=== PATIENT | female | born 1960 | race Caucasian/White ===

== ENCOUNTER 2018-10-29 08:56 | Inpatient (IN) ==
[2018-10-29 09:36] LABS: Hematocrit 42.1 % (37.0-47.0); Hemoglobin 14.2 gm/dL (12.5-16.0); Mean Cell Volume 90.5 fl (78-100); Mean Corpuscular Hemoglobin 30.5 pg (27-31); Mean Corpuscular Hgb Conc 33.7 g/dl (32-36); Mean Platelet Volume 10.4 fl (8-12.5); Neutrophil # 7.6 K/mm3 (1.3-6.0); Neutrophil % 73.1 % (42-75.0); Platelet Count 291 K/mm3 (150-450); Red Blood Count 4.65 M/mm3 (4.2-5.4); Red Cell Distribution Width 12.1 % (11.5-14.0); White Blood Count 10.4 K/mm3 (4.0-10.5)
[2018-10-29 09:46] LABS: Albumin * 3.7 gm/dl (3.4-5.0); Anion Gap 13.4 mmol/L (6.8-13.8); BUN/Creatinine Ratio 17.6 (9.0-21.6); Bilirubin, Total 0.5 mg/dL (0.0-1.1); Ca. Corrected For Albumin 9.9 mg/dL (8.4-10.2); Carbon Dioxide 27.6 mmol/L (24-32.6); Total Protein 8.4 gm/dL (6.2-8.2)
[2018-10-29] MEDS ORDERED: LABETALOL HCL 5 MG/ML VIAL IV ONE (09:59)
--- NOTE | 2018-10-29 11:44 | ERNOTE ---
Medical Problem HPI - Narrative Date of Service: 10/29/18 - General Chief Complaint: General Assessment Time Seen by Provider: 10/29/18 09:23 Source: patient, family Exam Limitations: no limitations - Immun/Allergies/Home Medications Immunizations: IMMUNIZATION HX Immunizations Up to Date Yes History of Influenza Vaccine No Hx Pneumococcal Vaccination No Allergies/Adverse Reactions: Allergies No Known Allergies Allergy (Verified 10/29/18 09:04) Home Medications: HOME MEDICATIONS Aspirin [Lo-Dose Aspirin EC] 81 mg PO DAILY 10/29/18 [Last Taken Unknown] Insulin Regular, Human [Humulin R] 17 unit INJ BID 10/29/18 [Last Taken Unknown] Lisinopril [Prinivil] 10 mg PO DAILY 10/29/18 [Last Taken Unknown] - History of Present History Narrative: Patient presents to the ED for trouble with vision. She noticed this around 8am today when she started driving. She has never had anything like this before. She has has a headache on the top of the head for 3 days. This is the first time she has driven since her headache started but she relates that she really hasn't noticed this unless driving. Only left eye, cant see left visual field left eye. No eye pain. She denies any extremity weakness or numbness. No vomiting. No trauma. No double vision. She had stroke in June that was seen at [facility] but without apparent deficits. No CP or SOB. Timing: constant, other - she noticed that at 8am today but it is not clear if this started earlier and her HERNÁNDEZ has been there for 3 days. HERN[place]NDEZ top of head. No temporal pain Severity: moderate Modifying Factors - (Improves): Present: other - nothing Modifying Factors - (Worsens): Present: other - nothing Review of Systems - Review of Systems Constitutional: Absent: fever EYE: Present: see HPI ENT: Absent: sore throat Respiratory: Absent: shortness of breath Cardiology: Absent: chest pain Gastrointestinal/Abdominal: Absent: abdominal pain Genitourinary: Absent: dysuria Skin: Absent: rash Neurological: Present: See HPI All Other Systems: All systems neg except as marked Medical History (Updated 10/29/18 @ 10:46 by Elvira Sanz RN) H/O: hysterectomy Diabetes Hx of hysterectomy Surgical History: Surgical History (Updated 10/29/18 @ 10:46 by Elvira Sanz RN) HTN (hypertension) Family History: Family History (Updated 10/29/18 @ 10:46 by Elvira Sanz RN) Other No pertinent family history Social History: Preferred Language Italian Do you have any catholic or No cultural preference? Smoking Status Never smoker Have you smoked in the past 12 No months Do you dip or chew tobacco No Alcohol Use none Drug Use none No Social History Section defined Physical Exam - Physical Exam General Appearance: Present: alert, no apparent distress Head Exam: Present: normal inspection, no evidence of injury Eye Exam: Normal inspection: bilateral, PERRL: bilateral, EOMI: bilateral, Other: bilateral - I see no convincing evidence of retinal abnormality on exam, no clear papilledema but difficult exam d/t small pupils. Ears, Nose, Throat: Present: normal ENT inspection Neck: Present: normal inspection Respiratory: Present: no respiratory distress, normal breath sounds, no accessory muscle use, lungs clear Cardiovascular/Chest: Present: regular rate, rhythm Gastrointestinal/Abdominal: Present: normal bowel sounds, nontender, soft Back Exam: Absent: CVA tenderness (R), CVA tenderness (L) Extremity Exam: Present: non-tender Neurological Exam: Present: alert, other - There is a left monocular temporal hemianopsia. No temporal artery tendenress. No pronator drift, finger to nose wnl. Full LE strength. Sensation intact.. Absent: facial droop, motor weakness, disoriented to person Skin Exam: Present: normal color, warm/dry Progress - Results and Orders Patient's Lab Results:: I have reviewed the patient's lab results. - Vital Signs Patient's Vital Signs:: I have reviewed the patient's vital signs. Vital Signs: Vital Signs 10/29/18 09:00 10/29/18 09:20 10/29/18 09:40 Temperature 36.6 C Pulse Rate 96 94 90 Respiratory Rate 16 15 15 Blood Pressure 195/101 H 184/96 H 198/85 H O2 Sat by Pulse Oximetry 99 99 97 10/29/18 10:00 10/29/18 10:03 10/29/18 10:10 Temperature Pulse Rate 89 87 83 Respiratory Rate 17 15 Blood Pressure 176/91 H 176/91 H 148/76 H O2 Sat by Pulse Oximetry 94 95 10/29/18 10:20 10/29/18 10:45 10/29/18 11:00 Temperature Pulse Rate 85 85 Respiratory Rate 18 15 17 Blood Pressure 151/83 H 156/87 H 160/83 H O2 Sat by Pulse Oximetry 93 93 93 10/29/18 11:15 Temperature Pulse Rate 85 Respiratory Rate 15 Blood Pressure 159/86 H O2 Sat by Pulse Oximetry 94 - EKG EKG #1 EKG: NSR EKG read: Interp. by me EKG Comments: NSR, Non-specific changes, no STEMI noted - CT/Ultrasound CT/Ultrasound Narrative: CT head report called to me by Dr Patton - Progress/Reassessment Chief Complaint: General Assessment Progress Note-Subjective: 10/29/18 11:[address] Frederick (stroke Team [facility]). He feels that she is not a candidate for inteventional therapy or tPA (she noticed this driving and had not driven over the last 2 dys). He felt she could be admitted here for work up. This included control of BP, I gave her Labetalol 10mg IV with improved BPs here. Also to include MRI brain, CTA Head and Neck, ROGELIO, 30 day event monitor at discharge and adding Lipitor to Aspirin. I spoke to Dr Green who will care for the patient in the hospital. Patient and family agreeable. Departure Clinical Impression: Hemianopia of left eye, Stroke - Departure Disposition: Still a patient Condition: Fair
[2018-10-29] MEDS: INSULIN LISPRO 100 UNITS/ML VIAL SC SCH ×2 (13:51→17:08)
[2018-10-29] MEDS ORDERED: ASPIRIN 325 MG TABLET.DR PO ONE (14:05)
[2018-10-29] MEDS ORDERED: ACETAMINOPHEN 325 MG TABLET PO PRN (14:10)
--- NOTE | 2018-10-29 14:48 | HP ---
Chief Complaint - Chief Complaint Date of Service: 10/29/18 Time of Service: 14:27 Chief Complaint: I cannot see on my left side since this morning History of Present Illness: 58-year-old female with past medical history of type 2 diabetes on insulin, hypertension, old CVA, was evaluated in our ER for left hemianopsia or the inability to see her left visual field that started this morning while driving. Patient reports that since Monday she has been having a headache at the top of her head specifically in the frontal and parietal regions, However her vision remained intact until this morning when she got behind the steering well started driving to work and noticed that she could not see anything on her left side. Patient became concerned enough to call her son who is a medic and who checked her blood pressure which was found to be above 200/100. Patient's son then took her to the ER. While in the ER patient was evaluated and the only neurological deficit that was finding was the visual defect. ER CT demonstrated a new lesion in the occipital lobe of her brain that was not there previously and other possible lesions in other lobes of the brain. Stroke center at the [facility] was consulted by ER physician and they recommended that patient be admitted to our institution for management of blood pressure and other chronic conditions since she was not a candidate for any interventions given the unknown duration of the stroke. They also recommended additional imaging with brain MRI and a CTA, so both of those imaging modalities were ordered upon admission. Patient denies having such headache before but she does admit to having neurological deficit such as lower extremity weakness during her previous stroke in June but since then her deficits have resolved. Medical History (Updated 10/29/18 @ 12:04 by Pao Leavitt RN) Stroke Diabetes HTN (hypertension) Surgical History: Surgical History (Updated 10/29/18 @ 12:03 by Pao Leavitt RN) H/O: hysterectomy Hx of hysterectomy Family History: Family History (Updated 10/29/18 @ 10:46 by Elvira Sanz RN) Other No pertinent family history Social History: Patient Lives/Resources With Spouse Utilized Preferred Language Algerian Do you have any shinto or Yes: Gnosticist cultural preference? Smoking Status Never smoker Have you smoked in the past 12 No months Do you dip or chew tobacco No Alcohol Use none Drug Use none No Social History Section defined Peds Patient Hx - Developmental: No Pertinent Hx Peds Patient Hx - Medical: No Pertinent Hx Peds Patient Hx - Cardiac/Respiratory: No Pertinent Hx Peds Patient Hx - Surgical: No Surgical History Patient History - Cancer: No Hx of Cancer Review Of Systems (GEN) - Review of Systems Generalized/Overall Review: Present: No Symptoms Reported EENTM: Present: Other - Loss of vision of the left visual field out of left eye since this morning Respiratory: Present: No Symptoms Reported Cardiac: Present: No Symptoms Reported Abdominal: Present: No Symptoms Reported Genitourinary: Present: No Symptoms Reported Musculoskeletal: Present: No Symptoms Reported Neurological: Present: Other - Left hemianopsia Skin: Present: No Symptoms Reported Endocrine: Present: No Symptoms Reported Immunizations: IMMUNIZATION HX Immunizations Up to Date Yes History of Influenza Vaccine No Hx Pneumococcal Vaccination No Allergies/Adverse Reactions: Allergies Allergy/AdvReac Type Severity Reaction Status Date / Time No Known Allergies Allergy Verified 10/29/18 12:01 Home Medications: HOME MEDICATIONS Aspirin [Lo-Dose Aspirin EC] 81 mg PO DAILY 10/29/18 [Last Taken Unknown] Insulin Regular, Human [Humulin R] 10 units IJ 1700 10/29/18 [Last Taken Unknown] Insulin Regular, Human [Humulin R] 17 unit INJ QAM 10/29/18 [Last Taken Unknown] Lisinopril [Prinivil] 10 mg PO DAILY 10/29/18 [Last Taken Unknown] Exam - Exam Vital Signs: Vital Signs - Last Taken Temp 37.3 C 10/29/18 12:12 Pulse 86 10/29/18 12:12 Resp 16 10/29/18 12:12 BP 131/64 10/29/18 12:12 Pulse Ox 96 10/29/18 12:12 Constitutional: Present: Alert, Oriented x3, Cooperative, Well developed, Well nourished, No distress ENT Exam: Present: normal ENT inspection, hearing grossly normal, pharynx normal, TMs normal Eye Exam: bilateral eye: normal inspection, PERRL, EOMI, left eye: other - Left hemianopsia Neck: Present: non-tender, full range of motion, supple, normal inspection, trachea midline Back Exam: Present: normal inspection, no CVA tenderness, no vertebral tenderness Breasts: Present: Exam deferred Respiratory: Present: chest non-tender, lungs clear, normal breath sounds, no respiratory distress, no accessory muscle use Cardiovascular/Chest: Present: normal peripheral pulses, regular rate, rhythm, no chest tenderness, no edema, no gallop, no JVD, no murmur, no rub Peripheral Pulses: carotid (R): 3+, carotid (L): 3+, femoral (R): 4+, femoral (L): 4+, dorsalis-pedis (R): 4+, dorsalis-pedis (L): 4+ Abdomen: Present: Normal bowel sounds, soft, nontender, nondistended, no rebound tenderness, no hepatospenomegaly, no masses /Rectal: Present: Exam deferred Extremity: Present: normal range of motion, non-tender, normal inspection, no pedal edema, no calf tenderness, normal capillary refill Skin Exam: Present: normal color, warm/dry, no cyanosis Lymphatic: Present: no adenopathy 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, normal cerebellar test, alert, normal mood/affect, oriented x 3, sensory deficit - Left hemianopsia Appearance: Present: appropriate appearance, appropriate insight, neat, no memory impairment Eye contact: Present: cooperative, good eye contact, normal speech Thoughts: Present: normal thought pattern, no apparent hallucination Diagnostic Studies: Abnormal Lab Results 10/29/18 10/29/18 10/29/18 Range/Units 09:26 09:26 09:26 Neutrophils # 7.6 H (1.3-6.0) K/mm3 ESR 54 H (0-15) mm/hr Chloride 95 L (97-106) mmol/L Random Glucose 210 H (70-110) mg/dL Total Protein 8.4 H (6.2-8.2) gm/dL Laboratory Results WBC 10.4 K/mm3 (4.0-10.5) 10/29/18 09:26 RBC 4.65 M/mm3 (4.2-5.4) 10/29/18 09:26 Hgb 14.2 gm/dL (12.5-16.0) 10/29/18 09:26 Hct 42.1 % (37.0-47.0) 10/29/18 09:26 MCV 90.5 fl (78-100) 10/29/18 09: MCH 30.5 pg (27-31) 10/29/18 09: MCHC 33.7 g/dl (32-36) 10/29/18 09:26 RDW 12.1 % (11.5-14.0) 10/29/18 09:26 Plt Count 291 K/mm3 (150-450) 10/29/18 09:26 MPV 10.4 fl (8-12.5) 10/29/18 09:26 Immature Gran % (Auto) 0.30 % (0.001-0.429) 10/29/18 09:26 Immature Gran # (Auto) 0.03 K/mm3 (0.000-0.0310) 10/29/18 09:26 73.1 % (42-75.0) 10/29/18 09:26 20.0 % (20-51) 10/29/18 09:26 5.6 % (0.0-9) 10/29/18 09:26 0.7 % (0.0-3.0) 10/29/18 09:26 0.3 % (0.0-1.0) 10/29/18 09:26 Nucleated RBC % 0.0 k/mm3 (0-1) 10/29/18 09:26 7.6 K/mm3 (1.3-6.0) H 10/29/18 09:26 2.07 k/mm3 (1.5-3.5) 10/29/18 09:26 0.6 k/mm3 (0.0-1.0) 10/29/18 09:26 0.1 k/mm3 (0.0-0.7) 10/29/18 09:26 Absolute Basophils 0.0 k/mm3 (0.0-0.1) 10/29/18 09:26 ESR 54 mm/hr (0-15) H 10/29/18 09:26 Sodium 132 mmol/L (132-142) 10/29/18 09:26 134 mmol/L (130-142) 10/29/18 09:26 Potassium 4.0 mmol/L (3.4-4.6) 10/29/18 09:26 Chloride 95 mmol/L (97-106) L 10/29/18 09:26 Carbon Dioxide 27.6 mmol/L (24-32.6) 10/29/18 09:26 13.4 mmol/L (6.8-13.8) 10/29/18 09:26 BUN 13 mg/dL (3-23) 10/29/18 09:26 0.74 mg/dL (0.4-1.4) 10/29/18 09:26 Est GFR (Non-Af Amer) 86 mL/min (60-130) 10/29/18 09:26 17.6 (9.0-21.6) 10/29/18 09:26 210 mg/dL (70-110) H 10/29/18 09:26 Calcium 10.0 mg/dL (7.9-10.9) 10/29/18 09:26 Calcium Adj for Albumin 9.9 mg/dL (8.4-10.2) 10/29/18 09:26 0.5 mg/dL (0.0-1.1) 10/29/18 09:26 AST 16 U/L (0-48) 10/29/18: ALT 21 U/L (19-67) 10/29/18:26 103 U/L (50-170) 10/29/18 09:26 C-Reactive Prot, Quant 0.8 mg/dL (0.0-0.9) 10/29/18 09:26 8.4 gm/dL (6.2-8.2) H 10/29/18 09:26 3.7 gm/dl (3.4-5.0) 10/29/18 09:26 Assessment/Plan - Narrative Narrative: Patient was evaluated and medical chart was reviewed and decision to admit to Medr unit for management of an acute ischemic stroke in the occipital lobe was taken. Patient was administered aspirin and a statin was added to her treatment. We also have ordered additional imaging specifically a brain MRI and CTA of the neck to evaluate for the ischemic stroke and for atherosclerotic disease of the carotids. Currently patient continues to have left hemianopsia but no other neurological or sensory deficits are present. Her blood pressure has decreased with no additional medication since being sent from the ER, no other antihypertensive will be administered to avoid accelerated decrease of BP. We will follow-up with imaging results and treat patient with routine medications to manage her diabetes and other chronic conditions. There are no other concerns on labs. EKG on admission demonstrated a normal sinus rhythm with no other concerning findings. - Assessment/Plan (1) Ischemic stroke Problem: Acute (2) Hemianopia of left eye Problem: Acute (3) Diabetes 1.5, managed as type 2 Problem: Acute (4) HTN (hypertension) Problem: Acute (5) Recurrent cerebrovascular accidents (CVAs) Problem: Acute
[2018-10-29] MEDS: FAMOTIDINE 20 MG in DEXTROSE 5 % IN WATER 100 ML IV SCH ×2 (16:59)
[2018-10-29] MEDS ORDERED: INSULIN REGULAR, HUMAN 100 UNITS/ML VIAL IJ SCH (17:00)
[2018-10-29] MEDS ORDERED: INSULIN LISPRO 100 UNITS/ML VIAL SC SCH (17:00)
[2018-10-29] MEDS ORDERED: ROSUVASTATIN CALCIUM 10 MG TABLET PO SCH (21:00)
[2018-10-30] MEDS: FAMOTIDINE 20 MG in DEXTROSE 5 % IN WATER 100 ML IV SCH ×2 (01:58)
[2018-10-30] MEDS ORDERED: HUM INSULIN NPH/REG INSULIN HM 100 UNIT/ML VIAL SC SCH ×3 (08:30→17:00)
[2018-10-30] MEDS ORDERED: LISINOPRIL 10 MG TABLET PO SCH (09:00)
[2018-10-30] MEDS ORDERED: LOSARTAN POTASSIUM 50 MG TABLET PO SCH (09:00)
[2018-10-30] MEDS ORDERED: DOCUSATE SODIUM 100 MG CAPSULE PO SCH (09:00)
[2018-10-30] MEDS ORDERED: ASPIRIN 81 MG TAB.CHEW PO SCH (09:00)
[2018-10-30] MEDS ORDERED: INSUL NPH HU REC/INS RG HU REC 100 UNITS/ML VIAL SC SCH (09:00)
--- NOTE | 2018-10-30 10:40 | DS ---
(1) Ischemic stroke Problem: Acute (2) Hemianopia of left eye Problem: Acute (3) Diabetes 1.5, managed as type 2 Problem: Chronic (4) HTN (hypertension) Problem: Resolved (5) Recurrent cerebrovascular accidents (CVAs) Problem: Chronic Description of Stay: 58-year-old female admitted for a acute ischemic stroke of the right occipital lobe and left hemianopsia that started yesterday was evaluated at bedside and was found to be afebrile and in no acute distress. Patient's visual deficit has improved although she still is unable to see part of the left visual field past the midline out of the left eye. A thorough bedside neurological examination was conducted this morning and no new neurological deficits were detected patient reports feeling better than when she came to the hospital and is ready to go home. It was explained to her that it is important that she follows up with her PCP and a neurologist within the next week or so. In the meantime patient will be discharged with daily aspirin, a statin that she is to take every evening, and Plavix was added to her treatment given her presentation of recurrent strokes. Results of brain MRI were explained to the patient, she was informed that she has a ischemic stroke in her right occipital lobe and what appears to be a previous lesion in her right fredo. It was recommended that she undergoes a carotid Doppler to rule out atherosclerosis or any narrowing of her carotids which might explain the recurrent strokes. Patient and her agreed to the discharge plan. Patient will be discharged with orders for outpatient occupational therapy to address her visual deficit and she was instructed not to drive within the next few days until she follows up with her PCP for reevaluation of her symptoms. She expressed comprehension of the orders and was in agreement. Procedures Performed: none Results and Findings: Lab Pending Results 10/29/18 09:26: WBC 10.4, RBC 4.65, Hgb 14.2, Hct 42.1, MCV 90.5, MCH 30.5, MCHC 33.7, RDW 12.1, Plt Count 291, MPV 10.4, Immature Gran % (Auto) 0.30, Immature Gran # (Auto) 0.03, Neutrophils % 73.1, Lymphocytes % 20.0, Monocytes % 5.6, Eosinophils % 0.7, Basophils % 0.3, Nucleated RBC % 0.0, Neutrophils # 7.6 H, Lymphocytes # 2.07, Monocytes # 0.6, Eosinophils # 0.1, Absolute Basophils 0.0 10/29/18 09:26: Sodium 132, Plasma Sodium 134, Potassium 4.0, Chloride 95 L, Carbon Dioxide 27.6, Anion Gap 13.4, BUN 13, Creatinine 0.74, Est GFR (Non-Af Amer) 86, BUN/Creatinine Ratio 17.6, Random Glucose 210 H, Calcium 10.0, Calcium Adj for Albumin 9.9, Total Bilirubin 0.5, AST 16, ALT 21, Alkaline Phosphatase 103, Total Protein 8.4 H, Albumin 3.7 10/29/18 09:26: ESR 54 H 10/29/18 09:26: C-Reactive Prot, Quant 0.8 Discharge Location: Home Disposition: Home self-care Condition: Fair Face to Face Encounter completed per [facility] Guidelines: No Discharge Activity: Activity as tolerated Discharge Diet: Consistent carbs Additional Patient Instructions (free text): Patient is to also 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 Prescriptions (Any new or edited meds): Clopidogrel Bisulfate [Plavix] 75 mg PO DAILY 30 Days #30 tab Complete Home Medications List: Complete Home Medication List: Aspirin [Lo-Dose Aspirin EC] 81 mg PO DAILY 10/29/18 Insulin NPH Hum/Reg Insulin Hm [Humulin 70-30] 10 unit SC 1700 10/29/18 Insulin NPH Hum/Reg Insulin Hm [Humulin 70-30] 17 unit SC QAM 10/29/18 Losartan Potassium [Cozaar] 25 mg PO DAILY 10/29/18 Clopidogrel Bisulfate [Plavix] 75 mg PO DAILY 30 Days #30 tab 10/30/18 Simvastatin 20 mg PO HS #30 tablet 10/30/18 Amb Orders for Discharge: US Carotid Duplex Comp Bilat * Time Frame: 3 Days, Location: Radiology
[2018-10-30 14:06] VITALS: BP 149/87
== END 2018-10-30 14:20 | disposition home or self-care (01) | DRG 66 ==
LOC: MS 08:56 → ER 08:56 → OBSVTOIN 11:25 → INTOOBSV 11:25 → MS 11:32
PROVIDERS: ADMIT Family Medicine; ATTEND Family Medicine
DX: I69.398 Other sequelae of cerebral infarction; H53.47 Heteronymous bilateral field defects; E13.9 Other specified diabetes mellitus without complications; I67.82 Cerebral ischemia; I10 Essential (primary) hypertension; I63.541 Cerebral infarction due to unspecified occlusion or stenosis of right cerebellar artery
CPT/HCPCS: 36415; 70450; 70553; 80053; 85025; 85652; 86140; 93005; 96374; 99284; A9576